=== PATIENT | female | born 1950 | race Caucasian/White ===

== ENCOUNTER 2018-12-11 13:46 | Observation (INO) ==
--- NOTE | 2018-12-11 14:03 | PROVIDER DOCUMENTATION ---
HPI-General Adult - General Chief Complaint: Weakness Stated Complaint: FALL / HIPS Time Seen by Provider: 12/11/18 13:54 Source: patient, family (son) Allergies/Adverse Reactions: Patient Allergies Allergy/AdvReac Type Severity Reaction Status Date / Time codeine Allergy NAUSEA Verified 05/20/16 13:54 NSAIDS (Non-Steroidal AdvReac NAUSEA/VOMI Verified 05/20/16 13:54 Anti-Inflamma TING Home Medications: Home Medication List Medication Instructions Recorded Confirmed Last Taken Type Alprazolam [Xanax] 1 mg TID 05/20/16 05/20/16 05/20/16 History Oxycodone HCl/Acetaminophen 1 dose 4XDAY 05/20/16 05/20/16 05/20/16 History [Percocet 7.5-325 mg Tablet] Trazodone [Desyrel] 100 mg 05/20/16 05/19/16 History - History of Present Illness -Gen Adult Nature of Presenting Problems: reports that she was found 4 hrs on the floor by her son who took her here for further eval. never has this before. 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 so weak, mind foggy, slow speech. lost 30lbs last few months, unintentional. she is on xanax, trazodone and opioid for her chronic pain, fibromyalgia. Review of Systems - Adult - REVIEW OF SYSTEMS - ADULT Constitutional: reports: no symptoms reported Eyes: reports: no symptoms reported Ears, Nose, Mouth & Throat: reports: no symptoms reported Cardiovascular: reports: no symptoms reported Respiratory: reports: no symptoms reported Gastrointestinal: reports: no symptoms reported Genitourinary: reports: no symptoms reported Musculoskeletal: reports: no symptoms reported Integumentary: reports: no symptoms reported Neurological: reports: no symptoms reported Psychiatric: reports: no symptoms reported Endocrine: reports: no symptoms reported Hematologic/Lymphatic: reports: no symptoms reported Allergic/Immunologic: reports: no symptoms reported All Other Systems: Reviewed and Negative Past History - Adult - PAST MEDICAL HISTORY-ADULT Review of Records: reports: Old Records Reviewed, Nursing Assessment Review, Medications Reviewed, Social history reviewed & non-contributory. Major Childhood Illnesses: reports: denies history Cardiovascular: reports: denies history Respiratory: reports: denies history Gastrointestinal: reports: denies history Obstetrical/Gynecological: reports: denies history Genitourinary: reports: denies history Musculoskeletal: reports: chronic pain Neurological: reports: denies history Psychiatric: reports: anxiety Endocrine/Immune: reports: denies history Other Conditions: reports: denies history - PRIOR SURGERIES/PROCEDURES Surgical/Procedure History: reports: cholecystectomy, hysterectomy - IMMUNIZATION STATUS Childhood Immunizations: See Nurse Assessment Flu Vaccine: See Nurse Assessment - FAMILY HISTORY Family History: reviewed, not pertinent - SOCIAL HISTORY Smoking: denies Substance Use: none/never Alcohol Use Frequency: never Living Situation: family Physical Exam-General - CONSTITUTIONAL General Appearance: mild distress, cachetic (pale), slow to respond - EYES Eyes: PERRL/EOMI, pink conjunctivae - HEAD, EARS, NOSE, MOUTH & THROAT HENMT: normocephalic/atraumatic, normal ENT inspection, other (dry oral mucous) - NECK Neck: non-tender, full range of motion, supple - RESPIRATORY Respiratory: chest non-tender, lungs clear, normal breath sounds - CARDIOVASCULAR Cardiovascular: normal peripheral pulses, no edema, tachycardia - GASTROINTESTINAL (ABDOMEN) Abdominal Exam: normal bowel sounds, non tender, soft - MUSCULOSKELETAL Back Exam: normal inspection, no CVA tenderness, no vertebral tenderness, kyphosis Extremity: normal range of motion, non-tender Peripheral Pulses: radial (R): 2+, radial (L): 2+, dorsalis-pedis (R): 2+, dorsalis-pedis (L): 2+ - SKIN Integumentary: normal color, warm/dry - NEUROLOGIC Neurologic: no motor/sensory deficits, other (tongue deviated to left, eye balls not aligned.) - PSYCHIATRIC Psych/Mental Status: oriented x 3 Progress - PLAN OF CARE/RESULTS Progress/Plan/Lab Results: Vital Signs - 8 hr 12/11/18 13:53 Temperature 97.9 F Pulse Rate 125 H Respiratory Rate 16 Blood Pressure 116/081 O2 Sat by Pulse Oximetry 95 Result Diagrams: 12/11/18 14:40 12/11/18 14:40 - CONSULTS/PCP/HOSPITALIST Notification #1 *Consult/PCP/Hospitalist*: dr. Franklin Time Discussed: 17:05 (TIA, FTT) Consult Disposition: Admit (for obs for TIA/CVA w/u) Departure - Departure Date of Disposition Decision: 07/02/19 Time of Disposition Decision: 16:52 DIAGNOSIS: TIA (transient ischemic attack), Failure to thrive in adult Disposition: ADMITTED INPATIENT 09 Certified Medical Emergency: Emergent Condition: Stable Referrals and Follow-Ups: Wing Neil MD [Primary Care Provider] - - Critical Care Note This patient required my direct & personal management of CC.: No Attestation - Physician/ ALISIA Attestation The physician spent face to face time with patient:: Yes Advanced Practice Provider documentation review:: Supervising physician onsite and consulted in the evaluation and care of this patient. The physician did have a face to face encounter with the patient.
[2018-12-11] MEDS ORDERED: NS 1,000 ML IV ONE (14:21)
--- NOTE | 2018-12-11 14:36 | EKG Report ---
Test Performed on : 12/11/2018 2:28:47 PM Test Reason : CP Blood Pressure : / mmHG Vent. Rate : 106 BPM Atrial Rate : 106 BPM P-R Int : 150 ms QRS Dur : 132 ms QT Int : 382 ms P-R-T Axes : 065 -10 020 degrees QTc Int : 507 ms Sinus tachycardia. Right bundle branch block Inferior infarct , age undetermined Anteroseptal infarct , age undetermined Abnormal ECG When compared with ECG of 02-OCT-2009 22:16, Anteroseptal infarct is now present Inferior infarct is now present QT has lengthened Unconfirmed Result
[2018-12-11 14:56] LABS: BASO# 0.02 X1000 (0.0-0.2); BASO% 0.2 % (0.0-0.8); HEMATOCRIT 47.6 % (37.0-47.0); HEMOGLOBIN 15.9 g/dL (12.0-16.0); IMM GRAN# 0.01 X1000 (0.0-0.04); IMM GRAN% 0.1 % (0.0-0.5); LYMPH# 0.67 X1000 (1.2-3.4); LYMPH% 8.2 % (20.5-51.1); MCH 29.2 PG (27-31); MCHC 33.4 g/dL (33-37); MCV 87.3 FL (81-99); MONO# 0.25 X1000 (0.11-0.59); MONO% 3.1 % (1.7-9.3); MPV 10.9 FL (7.4-10.4); NEUT# 7.22 X1000 (1.4-6.5); NEUT% 88.4 % (42.2-75.2); PLT 165 X1000 (130-400); RBC 5.45 XMIL (4.2-5.4); RDW 13.3 % (11.5-14.5); WBC 8.17 X1000 (4.8-10.8)
--- NOTE | 2018-12-11 15:01 | Diag Imaging Result Doc PS360 ---
EXAM: CT HEAD W/O CONTRAST HISTORY: tia TECHNIQUE: CT head without contrast COMPARISON: 05/20/2016 FINDINGS: No parenchymal hemorrhage. No epidural or subdural hematoma. No subarachnoid hemorrhage. There is atrophy similar to the prior study. No mass identified on this noncontrasted exam. No hydrocephalus. No sinus opacification. IMPRESSION: No hemorrhage. No change. This exam was performed using automated exposure control, adjustment of mA or kV according to patient size, and/or use of iterative reconstruction technique. Electronically signed by Chidi Holbrook 12/11/2018 2:59 PM
[2018-12-11 15:06] LABS: AGAP 11; ALBUMIN 3.8 g/dL (3.5-5.0); ALKALINE PHOSPHATASE 87 U/L (32-104); BUN 10 mg/dL (8-22); CALCIUM 8.9 mg/dL (8.8-10.2); CHLORIDE 104 mmol/L (98-107); COSMO 285; CREATININE 0.8 mg/dL (0.5-0.9); ESTIMATED GFR > 60; GLUCOSE 151 mg/dL (70-104); GOT 20 U/L (10-30); GPT 9 U/L (10-36); MAGNESIUM 1.6 mg/dL (1.5-2.7); SODIUM 142 mmol/L (136-145); TCO2 27 mmol/L (25-35)
[2018-12-11 16:07] LABS: URINE SOURCE CLEAN CATCH
[2018-12-11 16:08] LABS: BILIRUBIN URINE NEGATIVE (NEGATIVE); BLOOD URINE NEGATIVE (NEGATIVE); CLARITY CLEAR (CLEAR); COLOR YELLOW; GLUCOSE URINE NEGATIVE (NEGATIVE); KETONE URINE NEGATIVE (NEGATIVE); LEUKOCYTES URINE NEGATIVE (NEGATIVE); NITRITE URINE NEGATIVE (NEGATIVE); PROTEIN URINE NEGATIVE (NEGATIVE); SP GRAVITY URINE 1.005; UROBILINOGEN URINE NORMAL
[2018-12-11 16:09] LABS: URINE BACTERIA NEGATIVE /HFP; URINE EPITHELIAL CELLS <10 /HPF (<10); URINE RBC <10 /HPF (<10); URINE WBC <10 /HPF (<10)
[2018-12-11 16:38] LABS: UR AMPHETAMINES QUAL NONE DETECTED (NONE DETECT); UR BARBITUATES QUAL NONE DETECTED (NONE DETECT); UR BENZODIAZEPIN QUAL PRESUMPTIVE POSITIVE (NONE DETECT); UR CANNABINOIDS QUAL NONE DETECTED (NONE DETECT); UR COCAINE QUAL NONE DETECTED (NONE DETECT); UR METHADONE QUAL NONE DETECTED (NONE DETECT); UR METHAMPHETAMINE QUAL NONE DETECTED (NONE DETECT); UR OPIATES QUAL NONE DETECTED (NONE DETECT); UR OXYCODONE QUAL PRESUMPTIVE POSITIVE (NONE DETECT); UR PCP QUAL NONE DETECTED (NONE DETECT); UR PROPOXYPHENE QUAL NONE DETECTED (NONE DETECT); UR TCA QUAL PRESUMPTIVE POSITIVE (NONE DETECT)
--- NOTE | 2018-12-11 17:13 | ED EKG INTERP ---
This chart was entered by Genoveva Urbina Scribe, acting as scribe for Tee Dudley MD. EKG Interpretation - EKG Time of EKG reading by physician:: 14:28 EKG Read and Signed by:: Tee Dudley EKG Interpretation (*Must complete 3 of following elements*): Abnormal (anteroseptal infarct, age undetermined) Rate: 106 Rhythm: sinus tachycardia Phelan: normal QRS: RBB NC Interval: normal Comments: inferior infarct, age undetermined; Attestation - Physician/ ALISIA Attestation The physician spent face to face time with patient:: No Advanced Practice Provider documentation review:: Supervising physician onsite and consulted in the evaluation and care of this patient. The physician did not have a face to face encounter with the patient. This chart was documented by the indicated scribe, (Genoveva Urbina Scribe) and accurately reflects the services I performed and decisions made by Octavia torres Aslam A., MD, as attested by the provider's signature.
[2018-12-11] MEDS ORDERED: ZOFRAN IV PRN (17:20)
[2018-12-11] MEDS ORDERED: NARCAN IV ONE (17:21)
[2018-12-11] MEDS: NS 1,000 ML IV SCH (18:41)
--- NOTE | 2018-12-11 19:22 | Diag Imaging Result Doc PS360 ---
EXAM: CT ANGIOGRAM HEAD/NECK HISTORY: tia vs cva TECHNIQUE: 1. Emergency CT angiogram head with intravenous contrast. MIP images obtained. 2. Emergency CT angiogram neck with intravenous contrast. MIP images obtained. COMPARISON: None. FINDINGS: Neck: Normal right common carotid artery. Normal left common carotid artery. There is atherosclerotic plaque within each bulb. Narrowing less than 40% within each proximal internal carotid artery. Normal flow in each vertebral artery. Head: Normal flow within each middle cerebral artery and each anterior cerebral artery. Normal flow in the basilar artery. Normal filling of each posterior cerebral artery. There is a posterior communicating artery on the left. This is a normal variant. No aneurysm identified. IMPRESSION: Neck: No significant stenosis Head: No occlusion or aneurysm. This exam was performed using automated exposure control, adjustment of mA or kV according to patient size, and/or use of iterative reconstruction technique. Electronically signed by Chidi Holbrook 12/11/2018 7:19 PM
[2018-12-12] MEDS: NS 1,000 ML IV SCH ×3 (03:10→12:29)
[2018-12-12 06:41] LABS: BASO# 0.04 X1000 (0.0-0.2); BASO% 0.8 % (0.0-0.8); EOS# 0.09 X1000 (0.0-0.7); EOS% 1.8 % (0.0-10.0); HEMATOCRIT 41.4 % (37.0-47.0); HEMOGLOBIN 13.5 g/dL (12.0-16.0); LYMPH# 1.63 X1000 (1.2-3.4); LYMPH% 32.9 % (20.5-51.1); MCH 28.9 PG (27-31); MCHC 32.6 g/dL (33-37); MCV 88.7 FL (81-99); MONO# 0.33 X1000 (0.11-0.59); MONO% 6.7 % (1.7-9.3); MPV 11.4 FL (7.4-10.4); NEUT# 2.86 X1000 (1.4-6.5); NEUT% 57.8 % (42.2-75.2); PLT 145 X1000 (130-400); RBC 4.67 XMIL (4.2-5.4); RDW 13.5 % (11.5-14.5); WBC 4.95 X1000 (4.8-10.8)
[2018-12-12] MEDS ORDERED: PRILOSEC PO SCH (07:00)
[2018-12-12 08:05] LABS: AGAP 8; BUN 6 mg/dL (8-22); CHLORIDE 109 mmol/L (98-107); COSMO 278; CREATININE 0.6 mg/dL (0.5-0.9); ESTIMATED GFR > 60; GLUCOSE 86 mg/dL (70-104); POTASSIUM 3.6 mmol/L (3.5-5.1); SODIUM 141 mmol/L (136-145); TCO2 24 mmol/L (25-35)
[2018-12-12 08:06] LABS: CALCIUM 7.9 mg/dL (8.8-10.2)
[2018-12-12] MEDS ORDERED: LOVENOX SUBQ SCH (09:00)
--- NOTE | 2018-12-12 10:04 | HISTORY AND PHYSICAL ---
PRIMARY CARE PHYSICIAN: Dr. Alex Neil. CHIEF COMPLAINT: TIA, failure to thrive (adult). HISTORY OF PRESENT ILLNESS: This is a 68-year-old female, found by her son on the floor, where she had fallen and was unable to get up and subsequently spent 4 hours on the floor. The patient states she was weak, feels like "foggy mind," and slow in her speech recently. She has also had an unintentional 30-pound weight loss over the past few months. head CT that showed no hemorrhage and no changes. EKG showed sinus tachycardia with a rate of 106. CT of the head and neck showed no significant stenosis and no occlusion or aneurysm. The patient is admitted to [facility] for further testing PAST MEDICAL HISTORY: Includes chronic pain and anxiety. PAST SURGICAL HISTORY: Includes cholecystectomy and hysterectomy. FAMILY HISTORY: The patient states that her mother was positive for heart disease. SOCIAL HISTORY: The patient denies the use of alcohol, tobacco, or illicit drugs, and states she lives with her family. ALLERGIES: Codeine and NSAIDs. HOME MEDICATIONS: Include Xanax, oxycodone, and trazodone, and will be reconciled. REVIEW OF SYSTEMS: Constitutional: The patient states that she has had no fever or chills or flu- like symptoms. HEENT: The patient denies headaches, vision changes, hoarseness, dizziness, or neck pain. Endocrine: The patient denies excessive thirst, urination, or intolerance to heat or cold. Cardiovascular: The patient denies chest pain or palpitations. Respiratory: The patient denies cough, dyspnea, or shortness of breath. GI: The patient states that she has had a 30- pound weight loss over the past few months, unintentional weight loss. The patient denies diarrhea or constipation. : The patient denies any burning, urgency, frequency, or hematuria. Musculoskeletal: The patient just states that she has been weak Neurologic: The patient denies any dizziness or tremors. Hematologic: No bruising noted. Psychiatric: The patient is positive for anxiety. Skin: The patient has no rash or lesions. LABORATORY RESULTS: WBCs are 4.95, hemoglobin and hematocrit are 13.5 and 41.4, the patient's platelets are 145. The patient's chemistry shows sodium is 141, potassium is 3.6, chloride is 0.9, and carbon dioxide is 24. The patient's BUN is 6, creatinine is 0.6, glucose is 151, calcium is 7.9. AST is 20 with an ALT of 9. Urine was negative for protein and negative for ketones or nitrites, and toxicology was positive for oxycodone, tricyclics, and benzodiazepines. The patient is currently prescribed Xanax, oxycodone, and trazodone. PHYSICAL EXAMINATION: VITAL SIGNS: Temperature 98.1, heart rate 76, respirations 12, blood pressure 125/84, with a pulse ox of 96% on room air. GENERAL: This is a 68-year-old female who appears cachectic. HEENT: Normocephalic. PERRLA. Mucous membranes are moist. NECK: Trachea midline. No JVD was noted. CARDIOVASCULAR: There were no murmurs, gallops, rubs. Rate and rhythm is regular. RESPIRATORY: Lung sounds were clear to auscultation in all l[place]. Nonlabored respirations, and no accessory muscle use. GASTROINTESTINAL: Abdomen was soft and palpable x4 quadrants. Nondistended. Bowel sounds positive x4 quadrants. NEUROLOGIC: Cranial nerves II through XII are grossly intact. MUSCULOSKELETAL: Strength 5/5 in all 4 extremities. SKIN: Warm, dry, and intact. ASSESSMENT: 1. Transient ischemic attack. 2. Failure to thrive, adult. 3. Chronic pain. PLAN: Will admit to [facility]. Activity: Up with assistance. DVT, PE risk assessed and protocol. I and O, telemetry, n.p.o. The patient will be scheduled for a carotid ultrasound and an echo and MRI. Will obtain an A1c, CBC, and a comprehensive metabolic panel. Urine culture is pending. The patient is on normal saline at 150 mL, and is currently holding p.o. medications and diet due to upcoming MRI. Further recommendations will be pending per the patient's clinical course and response to therapy. Dictated by CLEMENCIA Dixon for Rubens Machado MD Addendum: Patient seen and examined by myself. Agree with CLEMENCIA note. It reflects my assessment and plan. Patient is being admitted to hospital for possible stroke. Upon my examination it looks like toxic encephalopathy secondary to opiate overdose. Will see what MRI of brain shows and if normal and considering that she is more awake now she will be discharged. cc: Rubens Machado MD MTDD
--- NOTE | 2018-12-12 11:39 | Diag Imaging Result Doc PS360 ---
EXAM: MRI BRAIN W/WO CONTRAST HISTORY: cva symptoms TECHNIQUE: Routine MRI brain with and without contrast. COMPARISON: CT brain 12/11/2018 FINDINGS: There is marked cerebral atrophy. There is no restricted diffusion to suggest acute infarct. There are small multifocal areas of the white matter T2 hyperintensity nonspecific in appearance but likely related to microvascular disease. A more prominent focus is noted left posterior parietal lobe. Chronic lacunar infarct right globus pallidus. No hydrocephalus. No midline shift or mass effect. No hemorrhage is five. No abnormal contrast enhancement. IMPRESSION: Cerebral atrophy. 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 No evidence for acute infarct. Electronically signed by Krystle Vo 12/12/2018 11:37 AM
[2018-12-12 12:19] VITALS: BP 153/83
--- NOTE | 2018-12-13 05:11 | DISCHARGE SUMMARY ---
ADMISSION DATE: 12/11/2018 DISCHARGE DATE: 12/12/2018 PRIMARY CARE PHYSICIAN: Dr. Neil. ADMISSION DIAGNOSES: 1. Transient ischemic attack. 2. Failure to thrive in an adult. DISCHARGE DIAGNOSES: 1. Transient ischemic attack. 2. Failure to thrive in an adult. SUMMARY OF FINDINGS: This is a 68-year-old female who was found by her son on the floor where she had fallen and was unable to get up and subsequently spent 4 hours on the floor. States that she had felt weak and felt "foggy minded," and was slow in her speech recently. Has had an intentional 30 pounds weight loss over the past few months. We did an initial CT of the head that showed no hemorrhage and no change. She was admitted. We did a brain MRI that showed cerebral atrophy, microvascular disease and old right lacunar infarct, but no evidence for an acute infarct. Also we did a head and neck CTA that showed: Neck no significant stenosis. Head no occlusion or aneurysm, so it is now felt that she could safely be discharged home. DISCHARGE MEDICATIONS: Include Xanax 1 mg p.o. b.i.d., Percocet 7.5 one p.o. 4 times daily, and Desyrel 150 mg p.o. at bedtime, all of which are her home medications. FOLLOWUP: She will follow up with her primary care physician in 1 to 2 weeks, and with her pain management doctor as well. This is a 33 minute discharge for Lucrecia San. Dictated by CLEMENCIA Carroll for Rubens Machado MD cc: CLEMENCIA Carroll MD Dr. Reddy
== END 2018-12-12 15:15 | disposition home or self-care (01) ==
LOC: P.ED 13:46 → P.MEDSURG 13:46 → SUATTDRO 17:21
PROVIDERS: ADMIT Internal Medicine; ATTEND Internal Medicine
CPT/HCPCS: 70450; 70496; 70498; 70553; 80048; 80053; 80104; 80301; 80305; 81001; 82550; 82948; 83735; 84443; 85025; 87077; 87088; 87186; 93005; 93306; 93880; A9579; G0431; G0434; G0477; J1650; J7030; XXXXX